=== PATIENT | female | born 1955 | race Caucasian/White ===

== ENCOUNTER 2019-10-30 10:13 | Outpatient (CLI) | payer BC, SELFPAY ==
--- NOTE | 2019-10-30 10:23 | XR_ITS ---
WS: [id number] SCREENING DEXA SCAN [employer] CLINICAL INFORMATION: OSTEOPOROSIS COMPARISON: June 09, 2017 FINDINGS: The L1-L4 bone mineral density measures 0.745 g/cm2. This corresponds to a T score score of -3.6 and Z score of -1.6. Left femoral neck bone mineral density measures 0.734 g/cm2. This corresponds to a T score of -2.2 an d Z score of -0.6. Right femoral neck bone mineral density measures 0.674 g/cm2. This corresponds to a T score -2.6of an d Z score of -1.1. Mean femoral neck bone mineral density measures 0.704 g/cm2. This corresponds to a T score of -2.4 an d Z score of -0.9. XR/XR DEXA axial skeleton* [id number] IMPRESSION: Osteoporosis Patient's FRAX calculated 10 year probability for major osteoporotic fracture i s 26.4 % and osteoporotic hip fracture is 8.3%. Bone mineral density lumbar spine has increased 11.5% and 2.2% in the femoral n ecks since 2018.
== END 2019-10-30 10:14 | disposition home or self-care (01) ==
LOC: RADWPI 10:17
PROVIDERS: PCP Family Medicine; Visit Provider Family Medicine
DX: M81.0 Age-related osteoporosis without current pathological fracture (principal)
CPT/HCPCS: 77080

== ENCOUNTER 2020-07-01 15:27 | Emergency (ER) | payer BC, SELFPAY ==
[2020-07-01 16:00] VITALS: BP 170/91; PULSE 65; RESP 14; TEMP 36.8; O2SAT 98; BMI 24.8
--- NOTE | 2020-07-01 16:02 | XR_ITS ---
WS: [id number] PORTABLE CHEST HISTORY: chest pain COMPARISON: 03/25/2017 Mild hyperexpansion and emphysema. No pneumonia. Normal vasculature. No pleural effusion or pneumotho rax. Cardiac size: Normal. Mediastinum/Aorta: Normal mediastinum. Deformity RIGHT clavicle from an old healed fracture. XR/XR chest 1V portable [id number] IMPRESSION: Chronic emphysema with no acute cardiopulmonary disease.
--- NOTE | 2020-07-01 16:15 | W.ED.CHESTPA ---
Documented by User: Salazar Eric DO 07/02/20 06:03 HPI - Chest Pain General: Chief Complaint: Chest Pain Stated Complaint: HTN/CP Time Seen by Provider: 07/01/20 16:04 History of Present Illness: HPI narrative: 65-year-old female who presents to the emergency room with complaint of chest pain. She has had this on and off throughout the entire day she states pain radiates into her back at times she rates it a 3 or 4 she sitting comfortably without any difficulty at this time. She denies any dysuria urgency or frequency denies any abdominal pain she has no shortness of breath she has no diaphoresis. She not had any fever sweats chills or cough. Pressure and has been taking regularly. She said no recent changes or deletions of her medications. She cannot run out of any medications recently MD complaint: chest discomfort Onset (ago): hour(s) Timing of current episode: episodic and still present Onset: during rest Pain location: left chest Pain radiation: back Severity: mild Pain scale (0-10): 3 Quality: aching and heaviness Relieving factors: nothing Exacerbating factors: nothing Associated symptoms: Deny abdominal pain, dyspnea, fever(s), nausea or vomiting Treatment prior to arrival: none Review of Systems Const: Denies: fever(s), chills, body aches, change in appetite, fatigue or malaise ENMT: Denies: throat pain, ear or mastoid pain, nasal discharge or nasal congestion Card: Denies: chest pain, edema, dyspnea on exertion or orthopnea Resp: Denies: dyspnea, productive cough or non-productive cough GI: Denies: abdominal pain, nausea, vomiting, hematemesis, coffee ground emesis, diarrhea, constipation, bloating, hematochezia or melena : Denies: flank pain, difficulty voiding, dysuria, urinary frequency or urinary urgency Skin/Breast: Denies: rash or pruritus PFSH ED PFSH: Medical History HTN (hypertension) Physical Exam Const: COMMON NORMALS: no acute distress GENERAL APPEARANCE: cooperative and comfortable ORIENTATION/CONSCIOUSNESS: Yes awake, Yes oriented to person, Yes oriented to place and Yes oriented to time HENMT: COMMON NORMALS: normocephalic, atraumatic and hearing grossly normal bilaterally HEAD & SCALP: normocephalic and atraumatic Neck/C-Spine: COMMON NORMALS: no JVD Resp: COMMON NORMALS: normal respiratory effort, No retractions, No use of accessory muscles and clear to auscultation bilaterally AUSCULTATION: clear to auscultation bilaterally Cardio: COMMON NORMALS: no JVD, regular rate, regular rhythm and No murmurs present (Cardio) RATE: regular rate RHYTHM: regular rhythm GI: COMMON NORMALS: Soft to palpation and No hepatosplenomegaly present AUSCULTATION: Yes normoactive bowel sounds PALPATION: Yes Soft to palpation, No Tenderness to palpation present (GI), No Guarding due to palpation present (GI) and Yes No hepatosplenomegaly present Extremity: COMMON NORMALS: normal to inspection, capillary refill normal, no clubbing, cyanosis or edema, no calf tenderness and no pedal edema Neuro: SENSORIUM/ORIENTATION: Yes oriented to person, Yes oriented to place and Yes oriented to time Skin: COMMON NORMALS: no rashes or lesions noted GENERAL SKIN EXAM: no rashes or lesions noted Course Vital Signs: Vital signs: Vital Signs Temperature 98.2 F 07/01/20 19:03 Pulse Rate 60 07/01/20 19:03 Respiratory Rate 17 07/01/20 19:03 Blood Pressure 100/60 07/01/20 19:03 Pulse Oximetry 97 07/01/20 19:03 MDM - Chest Pain MDM Narrative: Medical decision making narrative: Care turned over to Dr. Farnsworth at change of shift. See his notes for final diagnosis and disposition. Lab Data: Labs: Lab Results 07/01/20 07/01/20 07/01/20 Range/Units 16:14 16:14 16:14 WBC 4.7 (4.0-10.0) 10^3/ uL RBC 5.04 (4.1-5.3) 10^6/u L Hgb 15.1 (11.5-15.3) g/dL Hct 44.7 (37.0-47.0) % MCV 88.7 (81-99) fL MCH 30.0 (28.0-34.0) pg MCHC 33.8 (30.0-36.0) g/dL RDW 12.7 (12.1-15.1) % Plt Count 233 (130-400) 10^3/c mm MPV 11.2 H (7.4-10.4) fL Neut % (Auto) 56.7 % Lymph % (Auto) 31.5 % [place] % (Auto) 9.3 % Eos % (Auto) 1.5 % Baso % (Auto) 0.8 % Neut # (Auto) 2.68 (1.8-7.7) 10^3/u L Lymph # (Auto) 1.5 (0.8-4.8) 10^3/u L [place] # (Auto) 0.4 (0.2-0.9) 10^3/u L Eos # (Auto) 0.1 (0.0-0.8) 10^3/u L Baso # (Auto) 0.0 (0.0-0.1) 10^3/u L Nucleated RBC % (a uto) 0 % Nucleated RBCs # 0.0 /100WBC Sodium 141 (136-145) mmol/L Potassium 3.7 (3.5-5.1) mmol/L Chloride 105 (98-107) mmol/L Carbon Dioxide 28 (22-29) mmol/L Anion Gap 11.7 (5-19) BUN 11 (8-23) mg/dL Creatinine 0.7 (0.5-0.9) mg/dL GFR Calculation 84.0 L (90-130) mL/min Glucose 96 (65-115) mg/dL Calculated Osmolal ity 291 (285-295) mOsm/k g Calcium 9.7 (8.5-10.5) mg/dL Total Bilirubin 0.4 (0.15-1.2) mg/dL AST 16 (0-32) U/L ALT 16 (0-33) U/L Alkaline Phosphata se 66 (35-105) IU/L Troponin T Baselin e 6 (0-10) ng/L Troponin T 120 Min [place] (0-10) ng/L Delta Troponin T (0-10) ABS# Total Protein 7.1 (6.6-8.7) g/dL Albumin 4.3 (3.5-5.2) g/dL Globulin 2.8 (1.3-4.6) g/dL Urine Color (Yellow) Urine Appearance (CLEAR) Urine pH (5-7) Ur Specific Gravit y (1.005-1.030) Urine Protein (Negative) Urine Glucose (UA) (Normal) Urine Ketones (Negative) Urine Blood (Negative) Urine Nitrate (Negative) Urine Bilirubin (Negative) Urine Urobilinogen (Negative) mg/dL Ur Leukocyte Cori ase (Negative) Urine RBC (0-2) /hpf Urine WBC (0-5) /hpf Ur Squamous Epith Cells (0-5) /hpf Amorphous Sediment Urine Bacteria (NONE) /hpf 07/01/20 07/01/20 Range/Units 16:32 18:05 WBC (4.0-10.0) 10^3/ uL RBC (4.1-5.3) 10^6/u L Hgb (11.5-15.3) g/dL Hct (37.0-47.0) % MCV (81-99) fL MCH (28.0-34.0) pg MCHC (30.0-36.0) g/dL RDW (12.1-15.1) % Plt Count (130-400) 10^3/c mm MPV (7.4-10.4) fL Neut % (Auto) % Lymph % (Auto) % [place] % (Auto) % Eos % (Auto) % Baso % (Auto) % Neut # (Auto) (1.8-7.7) 10^3/u L Lymph # (Auto) (0.8-4.8) 10^3/u L [place] # (Auto) (0.2-0.9) 10^3/u L Eos # (Auto) (0.0-0.8) 10^3/u L Baso # (Auto) (0.0-0.1) 10^3/u L Nucleated RBC % (a uto) % Nucleated RBCs # /100WBC Sodium (136-145) mmol/L Potassium (3.5-5.1) mmol/L Chloride (98-107) mmol/L Carbon Dioxide (22-29) mmol/L Anion Gap (5-19) BUN (8-23) mg/dL Creatinine (0.5-0.9) mg/dL GFR Calculation (90-130) mL/min Glucose (65-115) mg/dL Calculated Osmolal ity (285-295) mOsm/k g Calcium (8.5-10.5) mg/dL Total Bilirubin (0.15-1.2) mg/dL AST (0-32) U/L ALT (0-33) U/L Alkaline Phosphata se (35-105) IU/L Troponin T Baselin e (0-10) ng/L Troponin T 120 Min [place] 6.00 (0-10) ng/L Delta Troponin T 0 (0-10) ABS# Total Protein (6.6-8.7) g/dL Albumin (3.5-5.2) g/dL Globulin (1.3-4.6) g/dL Urine Color Straw (Yellow) Urine Appearance Clear (CLEAR) Urine pH 6 (5-7) Ur Specific Gravit y 1.010 (1.005-1.030) Urine Protein Neg (Negative) Urine Glucose (UA) Norm (Normal) Urine Ketones Negative (Negative) Urine Blood Neg (Negative) Urine Nitrate Negative (Negative) Urine Bilirubin Neg (Negative) Urine Urobilinogen Norm (Negative) mg/dL Ur Leukocyte Cori ase Trace H (Negative) Urine RBC None (0-2) /hpf Urine WBC 0-4 H (0-5) /hpf Ur Squamous Epith Cells 0-4 H (0-5) /hpf Amorphous Sediment Not Reportable Urine Bacteria Trace (NONE) /hpf Discharge Plan Discharge Patient Disposition: Home Clinical Impression: Chest pain Qualifiers: Chest pain type: unspecified Qualified Code(s): R07.9 - Chest pain, unspecified HTN (hypertension) Qualifiers: Hypertension type: essential hypertension Qualified Code(s): I10 - Essential (primary) hypertension Condition: Stable Discharge Orders: Discharge ED (Routine); Ordered 07/01/20 Ordered By: Isabella Farnsworth Referrals: Ej Montero MD [Primary Care Provider] - 1-3 days Discharge Diet: Advance as tolerated Discharge Activity: Resume usual activity Patient Instructions: Chest Pain (ED) Coding Level of Care Code ED Silk Spreader for Javig Fwd Exam Comprehensive Documented by User: Isabella Farnsworth MD 07/01/20 19:08 HPI - Chest Pain General: Chief Complaint: Chest Pain Stated Complaint: HTN/CP Time Seen by Provider: 07/01/20 16:04 [facility] ED PFSH: Medical History HTN (hypertension) Course Vital Signs: Vital signs: Vital Signs Temperature 98.2 F 07/01/20 19:03 Pulse Rate 60 07/01/20 19:03 Respiratory Rate 17 07/01/20 19:03 Blood Pressure 100/60 07/01/20 19:03 Pulse Oximetry 97 07/01/20 19:03 MDM - Chest Pain MDM Narrative: Medical decision making narrative: Patient presents here with chest pain. Her repeat troponin here is negative. She is well-appearing here and has been pain-free. She was hypertensive as well and her blood pressure is much improved. She is stable for discharge and is to follow-up with her PCP and return if worsening. Lab Data: Labs: Lab Results 07/01/20 07/01/20 07/01/20 Range/Units 16:14 16:14 16:14 WBC 4.7 (4.0-10.0) 10^3/ uL RBC 5.04 (4.1-5.3) 10^6/u L Hgb 15.1 (11.5-15.3) g/dL Hct 44.7 (37.0-47.0) % MCV 88.7 (81-99) fL MCH 30.0 (28.0-34.0) pg MCHC 33.8 (30.0-36.0) g/dL RDW 12.7 (12.1-15.1) % Plt Count 233 (130-400) 10^3/c mm MPV 11.2 H (7.4-10.4) fL Neut % (Auto) 56.7 % Lymph % (Auto) 31.5 % [place] % (Auto) 9.3 % Eos % (Auto) 1.5 % Baso % (Auto) 0.8 % Neut # (Auto) 2.68 (1.8-7.7) 10^3/u L Lymph # (Auto) 1.5 (0.8-4.8) 10^3/u L [place] # (Auto) 0.4 (0.2-0.9) 10^3/u L Eos # (Auto) 0.1 (0.0-0.8) 10^3/u L Baso # (Auto) 0.0 (0.0-0.1) 10^3/u L Nucleated RBC % (a uto) 0 % Nucleated RBCs # 0.0 /100WBC Sodium 141 (136-145) mmol/L Potassium 3.7 (3.5-5.1) mmol/L Chloride 105 (98-107) mmol/L Carbon Dioxide 28 (22-29) mmol/L Anion Gap 11.7 (5-19) BUN 11 (8-23) mg/dL Creatinine 0.7 (0.5-0.9) mg/dL GFR Calculation 84.0 L (90-130) mL/min Glucose 96 (65-115) mg/dL Calculated Osmolal ity 291 (285-295) mOsm/k g Calcium 9.7 (8.5-10.5) mg/dL Total Bilirubin 0.4 (0.15-1.2) mg/dL AST 16 (0-32) U/L ALT 16 (0-33) U/L Alkaline Phosphata se 66 (35-105) IU/L Troponin T Baselin e 6 (0-10) ng/L Troponin T 120 Min [place] (0-10) ng/L Delta Troponin T (0-10) ABS# Total Protein 7.1 (6.6-8.7) g/dL Albumin 4.3 (3.5-5.2) g/dL Globulin 2.8 (1.3-4.6) g/dL Urine Color (Yellow) Urine Appearance (CLEAR) Urine pH (5-7) Ur Specific Gravit y (1.005-1.030) Urine Protein (Negative) Urine Glucose (UA) (Normal) Urine Ketones (Negative) Urine Blood (Negative) Urine Nitrate (Negative) Urine Bilirubin (Negative) Urine Urobilinogen (Negative) mg/dL Ur Leukocyte Cori ase (Negative) Urine RBC (0-2) /hpf Urine WBC (0-5) /hpf Ur Squamous Epith Cells (0-5) /hpf Amorphous Sediment Urine Bacteria (NONE) /hpf 07/01/20 07/01/20 Range/Units 16:32 18:05 WBC (4.0-10.0) 10^3/ uL RBC (4.1-5.3) 10^6/u L Hgb (11.5-15.3) g/dL Hct (37.0-47.0) % MCV (81-99) fL MCH (28.0-34.0) pg MCHC (30.0-36.0) g/dL RDW (12.1-15.1) % Plt Count (130-400) 10^3/c mm MPV (7.4-10.4) fL Neut % (Auto) % Lymph % (Auto) % [place] % (Auto) % Eos % (Auto) % Baso % (Auto) % Neut # (Auto) (1.8-7.7) 10^3/u L Lymph # (Auto) (0.8-4.8) 10^3/u L [place] # (Auto) (0.2-0.9) 10^3/u L Eos # (Auto) (0.0-0.8) 10^3/u L Baso # (Auto) (0.0-0.1) 10^3/u L Nucleated RBC % (a uto) % Nucleated RBCs # /100WBC Sodium (136-145) mmol/L Potassium (3.5-5.1) mmol/L Chloride (98-107) mmol/L Carbon Dioxide (22-29) mmol/L Anion Gap (5-19) BUN (8-23) mg/dL Creatinine (0.5-0.9) mg/dL GFR Calculation (90-130) mL/min Glucose (65-115) mg/dL Calculated Osmolal ity (285-295) mOsm/k g Calcium (8.5-10.5) mg/dL Total Bilirubin (0.15-1.2) mg/dL AST (0-32) U/L ALT (0-33) U/L Alkaline Phosphata se (35-105) IU/L Troponin T Baselin e (0-10) ng/L Troponin T 120 Min [place] 6.00 (0-10) ng/L Delta Troponin T 0 (0-10) ABS# Total Protein (6.6-8.7) g/dL Albumin (3.5-5.2) g/dL Globulin (1.3-4.6) g/dL Urine Color Straw (Yellow) Urine Appearance Clear (CLEAR) Urine pH 6 (5-7) Ur Specific Gravit y 1.010 (1.005-1.030) Urine Protein Neg (Negative) Urine Glucose (UA) Norm (Normal) Urine Ketones Negative (Negative) Urine Blood Neg (Negative) Urine Nitrate Negative (Negative) Urine Bilirubin Neg (Negative) Urine Urobilinogen Norm (Negative) mg/dL Ur Leukocyte Cori ase Trace H (Negative) Urine RBC None (0-2) /hpf Urine WBC 0-4 H (0-5) /hpf Ur Squamous Epith Cells 0-4 H (0-5) /hpf Amorphous Sediment Not Reportable Urine Bacteria Trace (NONE) /hpf Imaging Data^: CXR: Attestation: I personally reviewed and interpreted this imaging study as follows: Radiologist's impression: [place] [address] XRay Report Signed Patient: Marisa Bartholomew Unit #: [id number] : 1955 Age/Sex: 65 / F ADM Date: 07/01/20 Loc: ER Room/Bed: Attending Dr: Ordering Provider/Ordering MD: Dary Meza Date of Service: 07/01/20 Procedure(s): XR chest 1V portable [id number] Accession Number(s): [id number] Report Number: [id number] WS: [id number] PORTABLE CHEST HISTORY: chest pain COMPARISON: 03/25/2017 Mild hyperexpansion and emphysema. No pneumonia. Normal vasculature. No pleural effusion or pneumothorax. Cardiac size: Normal. Mediastinum/Aorta: Normal mediastinum. Deformity RIGHT clavicle from an old healed fracture. XR/XR chest 1V portable [id number] IMPRESSION: Chronic emphysema with no acute cardiopulmonary disease. Discharge Plan Discharge Patient Disposition: Home Clinical Impression: Chest pain Qualifiers: Chest pain type: unspecified Qualified Code(s): R07.9 - Chest pain, unspecified HTN (hypertension) Qualifiers: Hypertension type: essential hypertension Qualified Code(s): I10 - Essential (primary) hypertension Condition: Stable Discharge Orders: Discharge ED (Routine); Ordered 07/01/20 Ordered By: Isabella Farnsworth Referrals: Ej Montero MD [Primary Care Provider] - 1-3 days Discharge Diet: Advance as tolerated Discharge Activity: Resume usual activity Patient Instructions: Chest Pain (ED) Coding Level of Care Code ED Silk Spreader for Chg Fwd Exam Comprehensive
[2020-07-01 16:19] VITALS: BP 181/87; PULSE 62; RESP 18; O2SAT 98
[2020-07-01 16:28] LABS: Basophils % 0.8 %; Eosinophils # 0.1 10^3/uL (0.0-0.8); Eosinophils % 1.5 %; Hematocrit 44.7 % (37.0-47.0); Hemoglobin 15.1 g/dL (11.5-15.3); Lymphocytes # 1.5 10^3/uL (0.8-4.8); Lymphocytes % 31.5 %; Mean Corpuscular HGB Conc 33.8 g/dL (30.0-36.0); Mean Corpuscular Volume 88.7 fL (81-99); Mean Platelet Volume 11.2 fL (7.4-10.4); Monocytes # 0.4 10^3/uL (0.2-0.9); Monocytes % 9.3 %; Neutrophils # 2.68 10^3/uL (1.8-7.7); Neutrophils % 56.7 %; Nucleated Red Blood Cells % 0 %; Platelet Count 233 10^3/cmm (130-400); Red Blood Count 5.04 10^6/uL (4.1-5.3); Red Cell Distribution Width 12.7 % (12.1-15.1); White Blood Count 4.7 10^3/uL (4.0-10.0)
[2020-07-01 16:35] VITALS: BP 149/82; PULSE 55; RESP 19; O2SAT 98
[2020-07-01 16:42] VITALS: BP 149/82
[2020-07-01] MEDS: amlodipine 5 mg Tablet PO (16:42)
[2020-07-01] MEDS: cloNIDine 0.1 mg Tablet PO (16:42)
[2020-07-01] MEDS: aspirin 81 mg Chew Tablet 324 MG PO (16:42)
[2020-07-01 16:49] LABS: Alanine Aminotransferase 16 U/L (0-33); Albumin Level 4.3 g/dL (3.5-5.2); Alkaline Phosphatase 66 IU/L (35-105); Anion Gap 11.7 (5-19); Aspartate Amino Transferase 16 U/L (0-32); Blood Urea Nitrogen 11 mg/dL (8-23); Calcium 9.7 mg/dL (8.5-10.5); Carbon Dioxide 28 mmol/L (22-29); Chloride 105 mmol/L (98-107); Creatinine Clr Calc Pharmacy 57.7325; Globulin 2.8 g/dL (1.3-4.6); Glucose 96 mg/dL (65-115); Osmolality Calculated 291 mOsm/kg (285-295); Potassium 3.7 mmol/L (3.5-5.1); Sodium 141 mmol/L (136-145); Total Bilirubin 0.4 mg/dL (0.15-1.2); Total Protein 7.1 g/dL (6.6-8.7)
[2020-07-01 16:50] LABS: Troponin(5th) Baseline 6 ng/L (0-10)
[2020-07-01 17:16] VITALS: BP 151/82; PULSE 51; RESP 15; O2SAT 98
[2020-07-01 18:34] LABS: Troponin 5 2HR Delta 0 ABS# (0-10)
[2020-07-01 19:03] VITALS: BP 100/60; PULSE 60; RESP 17; TEMP 36.8; O2SAT 97
[2020-07-01 19:43] LABS: Add Urine Microscopic? YES; Bilirubin Urine Neg (Negative); Blood Urine Neg (Negative); Glucose Urine UA Norm (Normal); Ketones Urine Negative (Negative); Leukocyte Esterase Urine Trace (Negative); Nitrate Urine Negative (Negative); Protein Urine Neg (Negative); Urine Appearance Clear (CLEAR); Urine Color Straw (Yellow); Urobilinogen Urine Norm (Negative); pH Urine 6 (5-7)
[2020-07-01 20:25] LABS: Add Urine Culture? No; Bacteria Urine TRACE /hpf; Squamous Epithelial Cell Urine 0-4 /hpf (0-5); WBC Urine 0-4 /hpf (0-5)
== END 2020-07-01 19:06 | disposition home or self-care (01) ==
PROVIDERS: Physician Assistant; Emergency Provider Emergency Medicine; PCP Family Medicine
DX: R07.9 Chest pain, unspecified (principal); I10 Essential (primary) hypertension
CPT/HCPCS: 36415; 71045; 80053; 81001; 84484; 85025; 99283

== ENCOUNTER → 2020-10-14 16:23 | Outpatient (BNVA) | payer BC, SELFPAY | PROVIDERS: PCP Family Medicine; Visit Provider Nurse Practitioner Family | DX: N39.0 Urinary tract infection, site not specified (principal) | CPT/HCPCS: 81000 ==

== ENCOUNTER → 2021-02-03 18:00 | Outpatient (BNVA) | payer BC, SELFPAY | PROVIDERS: PCP Family Medicine; Visit Provider Registered Nurse Neonatal Intensive Care | DX: N39.0 Urinary tract infection, site not specified (principal) | CPT/HCPCS: 81000 ==

== ENCOUNTER → 2021-10-11 10:31 | Outpatient (BNVA) | payer BC, SELFPAY | PROVIDERS: PCP Family Medicine; Visit Provider Family Medicine | DX: N39.0 Urinary tract infection, site not specified (principal) | CPT/HCPCS: 81000 ==

== ENCOUNTER → 2021-12-15 15:56 | Outpatient (BNVA) | payer BC, MEDICARE, SELFPAY | PROVIDERS: PCP Family Medicine; Visit Provider Family Medicine | DX: Z00.00 Encounter for general adult medical examination without abnormal findings (principal); M79.673 Pain in unspecified foot | CPT/HCPCS: 80053; 80061; 84550; 85025 ==

== ENCOUNTER 2021-12-22 08:07 | Outpatient (CLI) | payer BC, MEDICARE, SELFPAY ==
--- NOTE | 2021-12-22 08:16 | MM_ITS ---
WS: [id number] BILATERAL SCREENING DIGITAL BREAST TOMOSYNTHESIS MAMMOGRAM WITH CAD HISTORY: screening COMPARISON: 03/27/2019 and 12/27/2017 Bilateral CC and MLO views with tomosynthesis and synthetic mammography submitted. Computer aided det ection analyzed. Breast composition: There are scattered areas of fibroglandular density. No suspicious masses, microc alcifications or architectural distortion. Asymmetry posterior to the RIGHT nipple and LEFT breast ca lcifications are stable over multiple prior years. MM/[place] [id number] IMPRESSION: BI-RADS: 2-Benign FOLLOW UP: 1 Year Follow-up
== END 2021-12-22 08:08 | disposition home or self-care (01) ==
PROVIDERS: PCP Family Medicine; Visit Provider Family Medicine
DX: Z12.31 Encounter for screening mammogram for malignant neoplasm of breast (principal)
CPT/HCPCS: 77063; 77067

== ENCOUNTER 2022-06-22 13:24 | Outpatient (CLI) | payer OTHER, MEDICARE, SELFPAY ==
--- NOTE | 2022-06-22 13:43 | XRR_ITS ---
PROCEDURE INFORMATION: Exam: XR Right Foot Exam date and time: 06/22/2022 1:51 PM Age: 67 years old Clinical indication: Right; Patient HX: RT foot pain x 3 years ago. Thought it was a bunion at first but the pain is moving around and now it pops quite a bit. Pain has increased on the top of foot and excruciating when walking. ; Additional info: Right forefoot pain acute on chronic TECHNIQUE: Imaging protocol: Radiologic exam of the Right foot. Views: 3 or more views. COMPARISON: No relevant prior studies available. FINDINGS: Bones/joints: Slight degenerative change, including very small plantar calcaneal spur. Calcification along the plantar aspect at the mid to distal calcaneal level could be associated with chronic tendinitis or fasciitis. No fracture or dislocation. No bony erosion. Soft tissues: No acute findings. XR/XR foot RT min 3V* [id number] IMPRESSION: 1. Slight degenerative change. 2. Chronic appearing soft tissue calcification along the plantar aspect at the mid to distal calcaneal level, could reflect chronic calcific tendinitis or fasciitis. 3. No fracture or acute osseous abnormality.
== END 2022-06-22 13:25 | disposition home or self-care (01) ==
PROVIDERS: PCP Family Medicine; Visit Provider Family Medicine
DX: M79.671 Pain in right foot (principal)
CPT/HCPCS: 73630

== ENCOUNTER → 2022-12-28 12:19 | Outpatient (BNVA) | payer OTHER, MEDICARE, SELFPAY | PROVIDERS: PCP Family Medicine; Visit Provider Nurse Practitioner | DX: S82.002A Unspecified fracture of left patella, initial encounter for closed fracture (principal); X58.XXXA Exposure to other specified factors, initial encounter | CPT/HCPCS: 73562 ==

== ENCOUNTER 2023-01-05 09:25 | Outpatient (CLI) | payer OTHER, MEDICARE, SELFPAY ==
--- NOTE | 2023-01-05 12:30 | CT_ITS ---
WS: [id number] NONCONTRAST CT LEFT KNEE TECHNIQUE: Noncontrast CT LEFT knee with coronal and sagittal reformatted images. CLINICAL INFORMATION: fracture COMPARISON: Radiograph 12/28/2022 DLP: 293.[address] scans at [facility] use at least one of these dose optimization techniques: automated e xposure control; mA and/or kV adjustment per patient size (includes targeted exams where dose is matc hed to clinical indication); or iterative reconstruction. FINDINGS: Small nondisplaced slightly comminuted fractures involving the mid and inferior pole of the patella c ompatible with recent radiographic findings. Tiny amount of cortical step-off along the posterior pat veronique. Otherwise no significant displacement or widening. Prepatellar soft tissue edema. Infrapatellar soft tissue edema. Distal quadriceps and patellar tendons appear intact. Distal femur is normal in appearance. No patella dislocation. Small suprapatellar effusion. Proximal fibula is normal in appearance. Normal femoral condyles and tibial plateau. No other visualized fract ures. IMPRESSION: 1. Slightly comminuted and nondisplaced fractures involving the mid and inferior patella compatible with recent trauma. Minimal cortical step off dorsally. No significant fracture displacement. 2. Small suprapatellar effusion. 3. No other acute findings.
== END 2023-01-05 09:26 | disposition home or self-care (01) ==
LOC: RAD 09:26
PROVIDERS: PCP Family Medicine; Visit Provider Physician Assistant
DX: S82.045A Nondisplaced comminuted fracture of left patella, initial encounter for closed fracture (principal); X58.XXXA Exposure to other specified factors, initial encounter; M25.462 Effusion, left knee
CPT/HCPCS: 73700

== ENCOUNTER 2023-01-07 14:06 | Outpatient (CLI) | payer OTHER, MEDICARE, SELFPAY | END 2023-01-07 14:07 | disposition home or self-care (01) | LOC: SPT 14:07 | PROVIDERS: PCP Family Medicine; Visit Provider Physician Assistant | DX: Z46.89 Encounter for fitting and adjustment of other specified devices (principal); S82.002D Unspecified fracture of left patella, subsequent encounter for closed fracture with routine healing; X58.XXXD Exposure to other specified factors, subsequent encounter | CPT/HCPCS: 97760; L1832 ==

== ENCOUNTER → 2023-01-21 10:42 | Outpatient (BNVA) | payer OTHER, MEDICARE, SELFPAY | PROVIDERS: PCP Family Medicine; Visit Provider Physician Assistant | DX: S82.045D Nondisplaced comminuted fracture of left patella, subsequent encounter for closed fracture with routine healing; X58.XXXD Exposure to other specified factors, subsequent encounter | CPT/HCPCS: 73562 ==

== ENCOUNTER 2023-01-25 07:51 | Outpatient (CLI) | payer OTHER, MEDICARE, SELFPAY ==
--- NOTE | 2023-01-25 07:58 | MM_ITS ---
WS: [id number] VIEWS: MLO and CC views both breasts. 3D digital tomosynthesis is also included in this exam. Comparison made with prior exam of 02/05/2014, 03/25/2015, 12/18/2016, 12/27/2017, 03/27/2019, 12/22/2021.. Findings: There was no sign of mass, architectural distortion or suspicious calcification in either breast. The re are scattered areas of fibroglandular density. Impression: MM/[place] [id number] BI-RADS: 2-Benign findings. FOLLOW-UP: 1 Year Follow-up This mammogram was also analyzed by the Computer Aided Detection System R2 Imag e Proposal Engineer.
== END 2023-01-25 07:52 | disposition home or self-care (01) ==
LOC: RAD 07:52
PROVIDERS: PCP Family Medicine; Visit Provider Family Medicine
DX: Z12.31 Encounter for screening mammogram for malignant neoplasm of breast (principal)
CPT/HCPCS: 77063; 77067

== ENCOUNTER → 2023-02-11 09:10 | Outpatient (BNVA) | payer OTHER, MEDICARE, SELFPAY | PROVIDERS: PCP Family Medicine; Visit Provider Physician Assistant | DX: S82.035D Nondisplaced transverse fracture of left patella, subsequent encounter for closed fracture with routine healing (principal); X58.XXXD Exposure to other specified factors, subsequent encounter | CPT/HCPCS: 73562 ==

== ENCOUNTER → 2023-02-25 11:06 | Outpatient (BNVA) | payer OTHER, MEDICARE, SELFPAY | PROVIDERS: PCP Family Medicine; Visit Provider Physician Assistant | DX: S82.035D Nondisplaced transverse fracture of left patella, subsequent encounter for closed fracture with routine healing (principal); X58.XXXD Exposure to other specified factors, subsequent encounter | CPT/HCPCS: 73562 ==

== ENCOUNTER → 2023-03-11 10:33 | Outpatient (BNVA) | payer OTHER, MEDICARE, SELFPAY | PROVIDERS: PCP Family Medicine; Visit Provider Physician Assistant | DX: S82.035D Nondisplaced transverse fracture of left patella, subsequent encounter for closed fracture with routine healing; X58.XXXD Exposure to other specified factors, subsequent encounter | CPT/HCPCS: 73562 ==

== ENCOUNTER → 2023-03-16 09:05 | Outpatient (BNVA) | payer OTHER, MEDICARE, SELFPAY | PROVIDERS: PCP Family Medicine; Visit Provider Family Medicine | DX: Z00.00 Encounter for general adult medical examination without abnormal findings (principal) | CPT/HCPCS: 80053; 80061; 85025 ==

== ENCOUNTER 2023-03-22 12:34 | Outpatient (CLI) | payer OTHER, MEDICARE, SELFPAY ==
--- NOTE | 2023-03-22 13:00 | XR_ITS ---
WS: [id number] SCREENING DEXA SCAN [employer] CLINICAL INFORMATION: severe osteoporosis COMPARISON: None. FINDINGS: The L1-L4 bone mineral density measures 0.690 g/cm2. This corresponds to a T score score of -4.1 and Z score of -2.1. Left femoral neck bone mineral density measures 0.693 g/cm2. This corresponds to a T score of -2.5 an d Z score of -0.9. Right femoral neck bone mineral density measures 0.627 g/cm2. This corresponds to a T score -3.0of an d Z score of -1.4. Mean femoral neck bone mineral density measures 0.660 g/cm2. This corresponds to a T score of -2.8 an d Z score of -1.2. IMPRESSION: Osteoporosis lumbar spine. Osteoporosis femoral necks. Patient's FRAX calculated 10 year probability for major osteoporotic fracture is 33.5% and osteoporot ic hip fracture is 13.1%.
== END 2023-03-22 12:35 | disposition home or self-care (01) ==
LOC: RAD 12:34
PROVIDERS: PCP Family Medicine; Visit Provider Family Medicine
DX: Z13.820 Encounter for screening for osteoporosis (principal); M81.0 Age-related osteoporosis without current pathological fracture
CPT/HCPCS: 77080

== ENCOUNTER 2023-03-26 11:06 | Outpatient (RCR) | payer OTHER, MEDICARE, SELFPAY | END 2023-04-15 23:59 | disposition home or self-care (01) | LOC: SPT 11:06 | PROVIDERS: PCP Family Medicine; Visit Provider Physician Assistant | DX: M25.562 Pain in left knee (principal); S82.002S Unspecified fracture of left patella, sequela; X58.XXXS Exposure to other specified factors, sequela | CPT/HCPCS: 97110; 97161 ==

== ENCOUNTER 2023-07-02 08:47 | Outpatient (CLI) | payer OTHER, MEDICARE, SELFPAY ==
--- NOTE | 2023-07-02 08:54 | FL_ITS ---
WS: [id number] Barium swallow and esophagram, upper GI series with air, 07/02/2023 Clinical Data: DYSPHAGIA Comparison: None. Fluoroscopy time: 1min [id number] # of spot films: 27 Findings: The patient swallowed the thick and thin barium, and it flowed to the hypopharynx without hesitation. No stricture, mass, polyp or erosion was seen. No aspiration or penetration occurred The barium into the esophagus and there was normal motility throughout. No stricture, polyp, mass, er osion or ulcer was noted. There was a small sliding hiatal hernia with moderate gastroesophageal refl ux in the recumbent position.. The barium passed into the stomach which was well distended. No erosion, polyp, mass or deformity cou ld be seen. No gastric ulcer was present. Barium then passed into the duodenal bulb which distended normally without ulceration. The proximal small bowel is normal. Impression: 1. Small hiatal hernia with moderate gastroesophageal reflux. 2. Normal stomach, duodenal bulb and proximal small bowel.
== END 2023-07-02 08:48 | disposition home or self-care (01) ==
LOC: RAD 08:48
PROVIDERS: PCP Family Medicine; Visit Provider Family Medicine
DX: R13.10 Dysphagia, unspecified (principal); K44.9 Diaphragmatic hernia without obstruction or gangrene; K21.9 Gastro-esophageal reflux disease without esophagitis
CPT/HCPCS: 74246

== ENCOUNTER 2024-03-13 07:56 | Outpatient (CLI) | payer MEDICARE, OTHER, SELFPAY ==
--- NOTE | 2024-03-13 08:01 | MM_ITS ---
WS: [id number] BILATERAL SCREENING DIGITAL TOMOSYNTHESIS MAMMOGRAM WITH CAD HISTORY: SCREENING COMPARISON: 01/25/2023, 12/22/2021, 12/27/2017 Bilateral CC and MLO views with tomosynthesis and synthetic mammography submitted. Computer aided det ection analyzed. Breast composition: There are scattered areas of fibroglandular density. No suspicious masses, microc alcifications or architectural distortion. Scattered calcifications in each breast. MM/MM scr tomosynthesis [id number] IMPRESSION: BI-RADS: 2 - Benign. FOLLOW UP: 1 Year Follow-up
== END 2024-03-13 07:57 | disposition home or self-care (01) ==
LOC: RAD 07:58
PROVIDERS: PCP Family Medicine; Visit Provider Family Medicine
DX: Z12.31 Encounter for screening mammogram for malignant neoplasm of breast (principal); R92.323 Mammographic fibroglandular density, bilateral breasts; R92.1 Mammographic calcification found on diagnostic imaging of breast
CPT/HCPCS: 77063; 77067

== ENCOUNTER 2024-03-13 22:26 | Emergency (ER) | payer OTHER, MEDICARE, SELFPAY ==
[2024-03-13 22:29] VITALS: BP 168/81; PULSE 64; RESP 16; TEMP 36.4; O2SAT 98
--- NOTE | 2024-03-13 22:55 | XRR_ITS ---
PROCEDURE INFORMATION: Exam: XR Chest Exam date and time: 03/13/2024 11:20 PM Age: 68 years old Clinical indication: Other: Dizzy and lightheaded; Additional info: Dizzy/lightheaded TECHNIQUE: Imaging protocol: Radiologic exam of the chest. Views: 1 view. COMPARISON: CR XR chest 1V portable [id number] 07/01/2020 4:06 PM FINDINGS: Lungs: Unremarkable. No consolidation. Pleural spaces: Unremarkable. No pleural effusion. No pneumothorax. Heart/Mediastinum: Unremarkable. No cardiomegaly. Bones/joints: Unremarkable. XR/XR chest 1V portable [id number] IMPRESSION: No acute findings.
--- NOTE | 2024-03-13 22:55 | ECG_ITS ---
[facility] Date[facility]24[facility]13 Pat Name: Marisa Barnett Department: Room: Gender: Female Senior Business Architect: : 1955 Requested By: King Tan Order Number: [id number] Lizeth MD: Yasmine Lopez M.D. Measurements Intervals Evans Rate: 60 P: -9 VA: 150 QRS: 6 QRSD: 77 T: 6 QT: 423 QTc: 423 Interpretive Statements SINUS RHYTHM No previous ECG available for comparison Electronically Signed On 03-13-2024 23:54:30 CDT by Yasmine Lopez M.D. [email or web address]
--- NOTE | 2024-03-13 23:04 | ED_ITS ---
HPI - Dizziness 2 General: Chief Complaint: Dizziness Stated Complaint: bp was high dropped fast dizzy n/v Time Seen by Provider: 03/13/24 22:40 Source: patient Mode of arrival: ambulatory Limitations: no limitations History of Present Illness: HPI Narrative: Patient is a 68-year-old female who presents the emergency department complaining of sudden onset dizziness and lightheadedness tonight. States that she thinks she has been under more stress today, also states that she takes a lot of supplements and medications, though denies any change in dosages or new additions. She states that this occurred when she stood up, she got severely dizzy and lightheaded and states she felt like she could pass out. She then states that she took a hot bath and this did not make her symptoms any better, actually made them worse. She denies any history of A-fib, heart attacks or strokes. She has never had something like this happen before, she does note that she takes Xanax for anxiety. At this time she is stating that she is not feeling dizziness or lightheadedness, but does state that if she lies flat or stands up too quick this causes it to get worse. She states that it is room spinning and denies any history of vertigo. She is also reporting some nausea, but states she is always nauseous. She denies any vomiting, bowel changes, palpitations, chest pain, shortness of breath, or other symptoms. MD elicited complaint: dizziness and lightheadedness Onset (ago): minute(s) Timing: sudden onset Severity: moderate Description: room spinning History of similar symptoms: No Exacerbating factors: standing and position/lying down Relieving factors: remaining still Associated symptoms: Reports nausea; Denies chest pain, chills, headache(s), palpitations or vomiting Associated neuro symptoms: Deny numbness in extremities Related Data Home Medications Medication Instructions Recorded Confirmed aspirin 81 mg tablet,delayed 81 mg PO DAILY 03/11/23 12/27/23 release (Adult Aspirin Regimen) calcium 600 mg (as carbonate)-vit 1 tab PO DAILY 03/11/23 12/27/23 D3 20 mcg (800 unit) chewable tablet (Caltrate plus D) esomeprazole magnesium 20 mg 20 mg PO DAILY 12/27/23 12/27/23 capsule,delayed release (Nexium) red yeast rice 600 mg capsule 600 mg PO BID 12/27/23 12/27/23 Previous Rx's Medication Instructions Recorded [place] Brace #1 ea 01/07/23 alendronate 70 mg tablet (Fosamax) 70 mg PO .weekly #5 tabs 03/29/23 ketoconazole 2 % topical cream 1 applic topical DAILY #15 grams 09/02/23 clotrimazole-betamethasone 1 1 applic topical BID 2 weeks #15 09/09/23 %-0.05 % topical cream grams alprazolam 0.25 mg tablet (Xanax) 0.25 mg PO DAILY #30 tabs 09/20/23 carvedilol 3.125 mg tablet 3.125 mg PO BID #180 tabs 12/27/23 naproxen 500 mg tablet See Rx Instructions .Route 02/17/24 .COMPLEX #30 tabs meclizine 25 mg tablet 25 mg PO DAILY PRN dizziness #30 03/14/24 tabs Allergies Allergy/AdvReac Type Severity Reaction Status Date / Time Antihistamines - Alkylamine Allergy Unknown Verified 03/13/24 22:39 celecoxib [From Celebrex] Allergy Unknown Verified 03/13/24 22:39 codeine Allergy ALGY-Hives Verified 03/13/24 22:39 fluoxetine [From Prozac] Allergy Unknown Verified 03/13/24 22:39 Sulfa (Sulfonamide Allergy ADR-Diarrhe Verified 03/13/24 22:39 Antibiotics) a ciprofloxacin [From Cipro] AdvReac Intermediate diarrhea Verified 03/13/24 22:39 Review of Systems 2 General: Reports: 10 or more systems reviewed and unremarkable except in HPI and below Const: Denies: fever(s), chills or fatigue Eyes: Denies: change in vision ENMT: Denies: throat pain, ear or mastoid pain or nasal discharge Card: Reports: lightheadedness; Denies: chest pain, palpitations or swelling of feet/ankles Resp: Denies: dyspnea, productive cough or wheezing GI: Reports: nausea; Denies: abdominal pain, vomiting, diarrhea or constipation : Denies: flank pain, difficulty voiding, dysuria or urinary frequency Musc: Denies: neck pain, back pain or joint pain Skin/Breast: Denies: rash Neuro: Reports: dizziness; Denies: headache(s), numbness in extremities or weakness in extremities PFSH ED 2 PFSH: Medical History Hyperlipidemia Osteoporosis HTN (hypertension) Social History Smoking and tobacco/nicotine status: unknown if used tobacco/nicotine Second hand smoke exposure: No Alcohol intake: never Substance/Drug Use: never Physical Exam 2 Const: COMMON NORMALS: no acute distress, patient oriented x3 and no limitations GENERAL APPEARANCE: cooperative, comfortable, well developed and anxious ORIENTATION/CONSCIOUSNESS: Yes awake, Yes oriented to person, Yes oriented to place and Yes oriented to time HENMT: COMMON NORMALS: normocephalic, atraumatic and hearing grossly normal bilaterally HEAD & SCALP: normocephalic and atraumatic Eye: COMMON NORMALS: Equal, round and reactive pupils present, EOMs intact bilaterally and conjunctivae normal CONJUNCTIVA: Yes conjunctivae normal P UPIL: Yes Equal, round and reactive pupils present Neck/C-Spine: COMMON NORMALS: full ROM, supple and no JVD Resp: COMMON NORMALS: normal respiratory effort, No retractions, No use of accessory muscles and clear to auscultation bilaterally AUSCULTATION: clear to auscultation bilaterally Cardio: COMMON NORMALS: no JVD, regular rate, regular rhythm, No clicks present (Cardio), No murmurs present (Cardio) and No rub (Cardio) RATE: r egular rate RHYTHM: regular rhythm GI: COMMON NORMALS: Normal to inspection, nondistended, normoactive bowel sounds present, Soft to palpation and non-tender AUSCULTATION: Yes normoactive bowel sounds PALPATION: Yes Soft to palpation RECTAL EXAM: d eferred Extremity: COMMON NORMALS: normal to inspection, full ROM and capillary refill normal Neuro: COMMON NORMALS: patient oriented x3, CN's II-XII intact bilaterally, moves all extremities, no focal motor deficits and no sensory deficits noted SENSORIUM/ORIENTATION: Yes oriented to person, Yes oriented to place and Yes oriented to time Psych: COMMON NORMALS: mental status grossly normal and Normal thought process present THOUGHT PROCESS: Normal thought process present Skin: COMMON NORMALS: no rashes or lesions noted GENERAL SKIN EXAM: no rashes or lesions noted Course 2 Vital Signs: Vital signs: Vital Signs Temperature 97.6 F 03/13/24 22:29 Pulse Rate 58 L 03/13/24 23:21 Respiratory Rate 16 03/13/24 22:29 Blood Pressure 155/77 03/13/24 23:21 Pulse Oximetry 97 03/13/24 23:21 Oxygen Delivery Me thod Room Air 03/13/24 23:21 MDM - Dizziness Medical Decision Making Patient presented with acute onset lightheadedness and dizziness beginning tonight. She has also noted that she had multiple stressors prior to this beginning, and it did occur while standing up quickly. Here her EKG was normal. Reviewed with physician. Chest x-ray did not demonstrate any acute abnormalities. Her troponin negative, rest of lab work negative. She states that she does feel better just being here in the emergency department, I think that her dizziness likely is vertigo could be made worse by anxiety. Her vitals have been stable, orthostatic negative. She is instructed to follow-up with primary care and return with any new or worsening. Lab Data 03/13/24 23:08 03/13/24 23:08 Laboratory Results WBC 5.30 10^3/uL (3.29-11.43) 03/13/24 23:08 RBC 4.47 10^6/uL (3.85-5.65) 03/13/24 23:08 Hgb 13.40 g/dL (11.27-16.99) 03/13/24 23:08 Hct 40.5 % (36-47) 03/13/24 23:08 MCV 90.6 fl (85-98) 03/13/24 23:08 MCH 30.0 pg (27-33) 03/13/24 23:08 MCHC 33.1 g/dL (30-55) 03/13/24 23:08 RDW 13.9 % (12.1-15.1) 03/13/24 23:08 Plt Count 179 10^3/cmm (157-399) 03/13/24 23:08 MPV 10.8 fL (7.4-10.4) H 03/13/24 23:08 Neut % (Auto) 58.4 % 03/13/24 23:08 Lymph % (Auto) 26.8 % 03/13/24 23:08 [place] % (Auto) 10.0 % 03/13/24 23:08 Eos % (Auto) 3.8 % 03/13/24 23:08 Baso % (Auto) 0.8 % 03/13/24 23:08 Neut # (Auto) 3.10 10^3/uL (1.8-7.7) 03/13/24 23:08 Lymph # (Auto) 1.4 10^3/uL (0.8-4.8) 03/13/24 23:08 [place] # (Auto) 0.5 10^3/uL (0.2-0.9) 03/13/24 23:08 Eos # (Auto) 0.2 10^3/uL (0.0-0.8) 03/13/24 23:08 Baso # (Auto) 0.0 10^3/uL (0.0-0.1) 03/13/24 23:08 Nucleated RBC % (auto) 0 % 03/13/24 23:08 Nucleated RBCs # 0.0 /100WBC 03/13/24 23:08 Sodium 140 mmol/L (136-145) 03/13/24 23:08 Potassium 4.0 mmol/L (3.5-5.1) 03/13/24 23:08 Chloride 103 mmol/L (98-107) 03/13/24 23:08 Carbon Dioxide 27 mmol/L (22-29) 03/13/24 23:08 Anion Gap 14.0 (5-19) 03/13/24 23:08 BUN 23 mg/dL (8-23) 03/13/24 23:08 Creatinine 0.7 mg/dL (0.5-0.9) 03/13/24 23:08 GFR Calculation 83.2 mL/min (90-130) L 03/13/24 23:08 Glucose 101 mg/dL (65-115) 03/13/24 23:08 Calculated Osmolality 294 mOsm/kg (285-295) 03/13/24 23:08 Calcium 8.7 mg/dL (8.5-10.5) 03/13/24 23:08 Magnesium 2.0 mg/dL (1.7-2.3) 03/13/24 23:08 Total Bilirubin 0.3 mg/dL (0.15-1.2) 03/13/24 23:08 AST 22 U/L (0-32) 03/13/24 23:08 ALT 28 U/L (0-33) 03/13/24 23:08 Alkaline Phosphatase 71 U/L (35-105) 03/13/24 23:08 Troponin T Baseline 8 ng/L (0-10) 03/13/24 23:08 Total Protein 6.3 g/dL (6.6-8.7) L 03/13/24 23:08 Albumin 4.3 g/dL (3.5-5.2) 03/13/24 23:08 Globulin 2.0 g/dL (1.3-4.6) 03/13/24 23:08 All radiology interpretation(s) finalized by discharge EKG Data EKG 1: I personally reviewed and interpreted this EKG as follows: EKG interpretation date: 03/13/24 EKG interpretation time: 23:24 Prior EKG tracings: not available for review Interpretation: Normal sinus rhythm. Rate 60. No STEMI. Other EKG comments: Reviewed with Dr. Vigil Discharge Plan Discharge Patient Disposition: Home Clinical Impression: Benign paroxysmal positional vertigo Qualifiers: Laterality: unspecified laterality Qualified Code(s): H81.10 - Benign paroxysmal vertigo, unspecified ear Condition: Stable Prescriptions: New meclizine 25 mg tablet 25 mg PO DAILY PRN (Reason: dizziness) Qty: 30 0RF No Action alendronate [Fosamax] 70 mg tablet 70 mg PO .weekly Qty: 5 11RF ketoconazole 2 % cream 1 applic topical DAILY Qty: 15 0RF (DME) [place] Brace See Rx Instructions .Route .MEDSUPPLY Qty: 1 0RF Rx Instructions: As directed aspirin [Adult Aspirin Regimen] 81 mg tablet,delayed release (DR/EC) 81 mg PO DAILY Caltrate 600 plus D 600 mg-20 mcg (800 unit) tablet,chewable 1 tab PO DAILY red yeast rice 600 mg capsule 600 mg PO BID Rx Instructions: give with meal/snack esomeprazole magnesium [Nexium] 20 mg capsule,delayed release(DR/EC) 20 mg PO DAILY carvedilol 3.125 mg tablet 3.125 mg PO BID Qty: 180 3RF Rx Instructions: must administer with a meal/food clotrimazole-betamethasone 1-0.05 % cream 1 applic topical BID 14 Days Qty: 15 0RF alprazolam [Xanax] 0.25 mg tablet 0.25 mg PO DAILY Qty: 30 5RF naproxen 500 mg tablet See Rx Instructions .ROUTE .COMPLEX Qty: 30 11RF Dose Instruction: TAKE 1 TABLET BY MOUTH ONCE DAILY NEEDED FOR PAIN Rx Instructions: TAKE 1 TABLET BY MOUTH ONCE DAILY NEEDED FOR PAIN Discharge Orders: Discharge ED (Routine); Ordered 03/14/24 Ordered By: King Estrada Referrals: Ej Montero MD [Primary Care Provider] - Discharge Diet: As Directed Patient Instructions: Benign Paroxysmal Positional Vertigo (ED) Activity Restrictions/Additional Instructions: Meclizine as needed for vertigo. Drink plenty of fluids. Continue taking your medications. Follow-up with your primary care provider for any further evaluation, and return with any new or worsening. Coding Level of Care Code ED [employer] for Shlomo Wong
[2024-03-13 23:16] LABS: Basophils % 0.8 %; Eosinophils # 0.2 10^3/uL (0.0-0.8); Eosinophils % 3.8 %; Hematocrit 40.5 % (36-47); Lymphocytes # 1.4 10^3/uL (0.8-4.8); Lymphocytes % 26.8 %; Mean Corpuscular HGB Conc 33.1 g/dL (30-55); Mean Corpuscular Volume 90.6 fl (85-98); Mean Platelet Volume 10.8 fL (7.4-10.4); Monocytes # 0.5 10^3/uL (0.2-0.9); Neutrophils % 58.4 %; Nucleated Red Blood Cells % 0 %; Platelet Count 179 10^3/cmm (157-399); Red Blood Count 4.47 10^6/uL (3.85-5.65); Red Cell Distribution Width 13.9 % (12.1-15.1)
[2024-03-13 23:20] VITALS: BP 149/90; BP 152/90; BP 155/77; PULSE 71; PULSE 74; PULSE 78
[2024-03-13 23:21] VITALS: BP 155/77; PULSE 58; O2SAT 97
[2024-03-13 23:33] LABS: Troponin(5th) Baseline 8 ng/L (0-10)
[2024-03-13 23:35] LABS: Alanine Aminotransferase 28 U/L (0-33); Albumin Level 4.3 g/dL (3.5-5.2); Alkaline Phosphatase 71 U/L (35-105); Aspartate Amino Transferase 22 U/L (0-32); Blood Urea Nitrogen 23 mg/dL (8-23); Calcium 8.7 mg/dL (8.5-10.5); Carbon Dioxide 27 mmol/L (22-29); Chloride 103 mmol/L (98-107); Creatinine Clr Calc Pharmacy 53.9771; Glomerular Filtration Rate 83.2 mL/min (90-130); Glucose 101 mg/dL (65-115); Osmolality Calculated 294 mOsm/kg (285-295); Sodium 140 mmol/L (136-145); Total Bilirubin 0.3 mg/dL (0.15-1.2); Total Protein 6.3 g/dL (6.6-8.7)
[2024-03-14 00:19] VITALS: BP 126/69; PULSE 61; RESP 16; O2SAT 97
[2024-03-14 00:28] LABS: Bilirubin Urine Negative (Negative); Blood Urine Negative (Negative); Glucose Urine UA Negative (Normal); Ketones Urine 1+ (Negative); Leukocyte Esterase Urine 2+ (Negative); Nitrate Urine Positive (Negative); Protein Urine Negative (Negative); Specific Gravity, Urine 1.014 (1.005-1.030); Urine Appearance Cloudy (CLEAR); Urine Color Yellow (Yellow); Urobilinogen Urine 0.2 mg/dL (Negative); pH Urine 7.5 (5-7)
[2024-03-14 01:05] LABS: Add Urine Microscopic? YES; Bacteria Urine 4+ /hpf; Squamous Epithelial Cell Urine 0-4 /hpf (0-5); UA Slide Review UA Slide Review Perf
[2024-03-14 01:06] LABS: Add Urine Culture? Yes
[2024-03-14] MEDS: cefTRIAXone 1,000 mg SDV 1000 MG IVP (01:19)
[2024-03-14 01:39] VITALS: BP 106/64; PULSE 64; RESP 16; O2SAT 97
== END 2024-03-14 01:40 | disposition home or self-care (01) ==
PROVIDERS: Emergency Provider Physician Assistant; PCP Family Medicine
DX: H81.10 Benign paroxysmal vertigo, unspecified ear (principal); Z79.82 Long term (current) use of aspirin; I10 Essential (primary) hypertension
CPT/HCPCS: 71045; 80053; 81001; 83735; 84484; 85025; 87077; 87086; 87186; 93005; 96374; 99285; J0696

== ENCOUNTER → 2024-09-18 08:06 | Outpatient (BNVA) | payer OTHER, MEDICARE, SELFPAY | PROVIDERS: PCP Family Medicine; Visit Provider Family Medicine | DX: I10 Essential (primary) hypertension (principal); N18.9 Chronic kidney disease, unspecified; R73.03 Prediabetes | CPT/HCPCS: 80053; 80061; 83036; 85025 ==

== ENCOUNTER 2025-01-04 06:55 | Day surgery (SDC) | payer OTHER, MEDICARE, SELFPAY ==
--- NOTE | 2025-01-04 06:58 | W.PM.OPSUD ---
Surgery/Procedure H&P Update DATE OF PROCEDURE: January 04, 2025 DATE H&P PERFORMED: 12/19/24 H&P UPDATE INFORMATION: I have reviewed H&P completed within last 30 days, I have examined patient prior to procedure, No changes to prior documentation, H&P is in [facility] EMR on date indicated and Risks and benefits of the procedure reviewed PLANNED PROCEDURE: Operation Date: 01/04/25 08:20 Proposed Procedures p EGD Dilation W/ Balloon 62473 R13.10(Not Applicable) - King Amaya MD
[2025-01-04 07:17] VITALS: BP 155/73; PULSE 54; RESP 18; TEMP 36.2; O2SAT 98; BMI 26.2
--- NOTE | 2025-01-04 07:50 | ANES.PREANE2 ---
Pre-Anesthetic Assessment Height/Weight: Height 1.42 m Weight 53.07 kg Temp Pulse Resp BP Pulse Ox O2 Del Method 97.2 F L 54 L 18 155/73 98 Room Air 01/04/25 07:17 01/04/25 07:17 01/04/25 07:17 01/04/25 07:17 01/04/25 07:17 01/04/25 07:17 Preop Diagnosis: gerd, dysphagia Operation Date: 01/04/25 08:20 Proposed Procedures p EGD Dilation W/ Balloon 63356 R13.10(Not Applicable) - King Amaya MD Familial anesthetic complications: none Was Beta Cristina taken within 24 hours: Yes Was Clonidine taken within 24 hours: N/A Last intake: Intake Last Liquid Date 01/03/25 Last Liquid Time 16:30 Last Solid Date 01/03/25 Last Solid Time 16:30 Social No alcohol and No tobacco Exam alert, oriented x 3 and clear to auscultation bilaterally Airway Mallampati: Class II Dentition: full History/ROS No significant history except as noted Pulmonary pt states she was told she has emphysema, does not use inhaler at home but has gotten breathing treatments prior to other procedures. CV/HEM Hypertension None reported Hepatic None reported GI Gastroesophageal Reflux Disease (related to diet) Metabolic None reported Musc/skel None reported Neuropsych None reported Anesthetic Plan ASA status: 2 Anesthesia: Anesthesia Evaluation and MAC Risk of > 500 ml blood loss (7ml/kg in children): No Medications/Allergies Home Medications ?Medication ?Instructions ?Recorded ?Confirmed ?Last Taken ?Type [place] Brace #1 ea 01/07/23 12/19/24 Unknown Rx calcium 600 mg (as carbonate)-vit 1 tab PO DAILY 03/11/23 01/02/25 01/02/25 History D3 20 mcg (800 unit) chewable tablet (Caltrate plus D) esomeprazole magnesium 20 mg 20 mg PO DAILY 12/27/23 01/02/25 01/02/25 History capsule,delayed release (Nexium) red yeast rice 600 mg capsule 600 mg PO BID 12/27/23 01/02/25 01/02/25 History alendronate 70 mg tablet (Fosamax) 70 mg PO .weekly #5 tabs 03/27/24 01/02/25 Unknown Rx Vitamin D3 1 tab PO DAILY 01/02/25 01/02/25 01/02/25 History alprazolam 0.25 mg tablet (Xanax) 0.25 mg PO BID 01/02/25 01/02/25 01/02/25 History carvedilol 3.125 mg tablet 3.125 mg PO BID 01/02/25 01/02/25 01/02/25 History naproxen 500 mg tablet 500 mg PO DAILY PRN Pain 01/02/25 01/02/25 Unknown History Allergies Allergy/AdvReac Type Severity Reaction Status Date / Time Antihistamines - Alkylamine Allergy Unknown Verified 01/02/25 10:15 celecoxib (From Celebrex) Allergy Unknown Verified 01/02/25 10:15 codeine Allergy ALGY-Hives Verified 01/02/25 10:15 fluoxetine (From Prozac) Allergy Unknown Verified 01/02/25 10:15 Sulfa (Sulfonamide Allergy ADR-Diarrhe Verified 01/02/25 10:15 Antibiotics) a ciprofloxacin (From Cipro) AdvReac Intermediate diarrhea Verified 01/02/25 10:15 Current Medications Generic Name Dose Route Start Last Admin Trade Name Freq PRN Reason Stop Dose Admin Sodium Chloride 1,000 mls @ 30 mls/hr 01/04/25 07:15 01/04/25 07:26 Sodium Chloride 0.9% IV 01/05/25 07:14 30 mls/hr .Q24H DERICK Administration PFSH Anesthesia Medical History Hyperlipidemia Osteoporosis HTN (hypertension) Family History (Updated 12/19/24 @ 14:37 by SIA Traore) Father Heart disease Aneurysm Social History Smoking and tobacco/nicotine status: never used tobacco/nicotine Second hand smoke exposure: No Alcohol intake: never Substance/Drug Use: never
[2025-01-04 08:44] VITALS: BP 111/61; PULSE 61; RESP 16; TEMP 36.3; O2SAT 99
[2025-01-04 08:54] VITALS: BP 94/57; PULSE 64; RESP 16; O2SAT 95
--- NOTE | 2025-01-04 15:30 | ANE.PACU2 ---
Inpatient post-anesthesia follow up: Airway intact: Yes Vital signs: Temperature 97.3 F Pulse Rate 64 Respiratory Rate 16 Blood Pressure 94/57 Pulse Oximetry 95 Oxygen Delivery Me thod Room Air Oxygen Flow Rate Fraction of Inspir ed Oxygen Hydration adequate: Yes Nausea and vomiting: No Pain level: 1 Mental status: Baseline
== END 2025-01-04 09:25 | disposition home or self-care (01) ==
PROVIDERS: PCP Family Medicine; Visit Provider Surgery
DX: R13.10 Dysphagia, unspecified (principal); K21.9 Gastro-esophageal reflux disease without esophagitis; K44.9 Diaphragmatic hernia without obstruction or gangrene; I10 Essential (primary) hypertension; E78.5 Hyperlipidemia, unspecified
CPT/HCPCS: 43239; 43249; 88305; J2704; J7030

== ENCOUNTER → 2025-03-26 13:16 | Outpatient (BNVA) | payer OTHER, MEDICARE, SELFPAY | PROVIDERS: PCP Family Medicine; Visit Provider Family Medicine | DX: I10 Essential (primary) hypertension (principal); E78.5 Hyperlipidemia, unspecified; M81.0 Age-related osteoporosis without current pathological fracture | CPT/HCPCS: 80053; 80061 ==

== ENCOUNTER 2025-04-09 13:10 | Outpatient (CLI) | payer OTHER, MEDICARE, SELFPAY ==
--- NOTE | 2025-04-09 13:30 | XR_ITS ---
WS: [id number] SCREENING DEXA SCAN [employer] CLINICAL INFORMATION: osteoporosis COMPARISON: 2022 FINDINGS: The L1-L4 bone mineral density measures 0.766 g/cm2. This corresponds to a T score score of -3.5 and Z score of -1.4. Left femoral neck bone mineral density measures 0.720 g/cm2. This corresponds to a T score of -2.3 and Z score of -0.6. Right femoral neck bone mineral density measures 0.665 g/cm2. This corresponds to a T score -2.7of and Z score of -1.0. Mean femoral neck bone mineral density measures 0.692 g/cm2. This corresponds to a T score of -2.5 and Z score of -0.8. XR/XR DEXA axial skeleton* [id number] IMPRESSION: Osteoporosis lumbar spine. Osteoporosis femoral necks at the lower end of the r tee. Patient's FRAX calculated 10 year probability for major osteoporotic fracture i s 30.2% and osteoporotic hip fracture is 10.7%. Bone density lumbar spine increased 11.0% Bone density femoral necks increased 4.8%
== END 2025-04-09 13:11 | disposition home or self-care (01) ==
LOC: RAD 13:11
PROVIDERS: PCP Family Medicine; Visit Provider Family Medicine
DX: Z13.820 Encounter for screening for osteoporosis (principal); M81.0 Age-related osteoporosis without current pathological fracture
CPT/HCPCS: 77080